=== PATIENT | female | born 1945 | race Caucasian/White ===

== ENCOUNTER 2017-04-08 07:36 | Day surgery (SDC) | payer MEDICARE, BC ==
[~2017-04-08] VITALS: Ht 180.3 cm; Wt 91.5 kg
[~2017-04-08 07:36] MED LIST: ASCO500 PO; Aspir 8181 MG; CLIN1TS; LAMO100; LAMO25 PO; LEVSOD75; LITH300C; LIVALO1 MG; PYRI100 PO; RISP1 PO; TOCO1000 PO; TRET.1TC TOP; VITAMIN D32000 UNIT PO
[2017-04-08] MEDS ORDERED: Hair, Skin & N1 EACH PO (08:02)
[2017-04-08] MEDS ORDERED: CALCIUM + D3 E1 EACH PO (08:03)
[2017-04-08] MEDS ORDERED: Coq-10100 MG PO (08:04)
[2017-04-08] MEDS ORDERED: TURMERIC500 M2 PO (08:05)
[2017-04-08] MEDS ORDERED: B Complex #11 EACH PO (08:06)
== END 2017-04-08 10:20 | disposition home or self-care (01) ==
LOC: ORSCSDS 07:36
PROVIDERS: Internal Medicine Gastroenterology
PROC: 0DBL8ZX Excision of Transverse Colon, Via Natural or Artificial Opening Endoscopic, Diagnostic (ICD-10-PCS; principal; 2017-04-08 08:45)
PROC: 0DBN8ZX Excision of Sigmoid Colon, Via Natural or Artificial Opening Endoscopic, Diagnostic (ICD-10-PCS; principal; 2017-04-08 08:45)
PROC: 0DBK8ZX Excision of Ascending Colon, Via Natural or Artificial Opening Endoscopic, Diagnostic (ICD-10-PCS; principal; 2017-04-08 08:45)
PROC: 0DBM8ZX Excision of Descending Colon, Via Natural or Artificial Opening Endoscopic, Diagnostic (ICD-10-PCS; principal; 2017-04-08 08:45)
DX: Z86.010 Personal history of colon polyps (principal); D12.2 Benign neoplasm of ascending colon; D12.3 Benign neoplasm of transverse colon; D12.4 Benign neoplasm of descending colon; K63.5 Polyp of colon; K64.8 Other hemorrhoids; K57.30 Diverticulosis of large intestine without perforation or abscess without bleeding; E03.9 Hypothyroidism, unspecified; J45.909 Unspecified asthma, uncomplicated; Z87.891 Personal history of nicotine dependence; Z79.899 Other long term (current) drug therapy; Z79.82 Long term (current) use of aspirin
CPT/HCPCS: 88305; J1980; J7120

== ENCOUNTER → 2017-07-25 | Outpatient (CLI) | payer MEDICARE, BC ==
[~2017-07-25] MED LIST changes: +B Complex #11 EACH PO; +CALCIUM + D3 E1 EACH PO; +Coq-10100 MG PO; +Hair, Skin & N1 EACH PO; +TURMERIC500 M2 PO
== END | disposition home or self-care (01) ==
LOC: LAB EV 18:41 → LAB SHORT 18:41
DX: N64.52 Nipple discharge (principal)
CPT/HCPCS: 87070; 87205

== ENCOUNTER 2018-04-28 08:17 | Day surgery (SDC) | payer MEDICARE, BC ==
[~2018-04-28] VITALS: Wt 89.7 kg
== END 2018-04-28 11:00 | disposition home or self-care (01) ==
LOC: ORSCSDS 08:17
PROVIDERS: Internal Medicine Gastroenterology
PROC: 0DBL8ZX Excision of Transverse Colon, Via Natural or Artificial Opening Endoscopic, Diagnostic (ICD-10-PCS; principal; 2018-04-28 09:30)
DX: Z12.11 Encounter for screening for malignant neoplasm of colon (principal); Z86.010 Personal history of colon polyps; K63.5 Polyp of colon; K57.30 Diverticulosis of large intestine without perforation or abscess without bleeding; K64.8 Other hemorrhoids; E03.9 Hypothyroidism, unspecified; Z87.891 Personal history of nicotine dependence; E78.5 Hyperlipidemia, unspecified; F31.9 Bipolar disorder, unspecified; Z79.899 Other long term (current) drug therapy; Z79.82 Long term (current) use of aspirin
CPT/HCPCS: 88305; J0330; J1980; J2405; J7120

== ENCOUNTER → 2018-06-15 | Outpatient (CLI) | payer MEDICARE, BC | END | disposition home or self-care (01) | LOC: LAB SHORT 09:53 → PLD 09:53 | DX: C44.41 Basal cell carcinoma of skin of scalp and neck (principal) | CPT/HCPCS: 88305 ==

== ENCOUNTER → 2018-07-02 | Outpatient (CLI) | payer MEDICARE, BC | END | disposition home or self-care (01) | LOC: LAB SHORT 11:52 → PLD 11:52 | DX: D48.5 Neoplasm of uncertain behavior of skin (principal) | CPT/HCPCS: 88305 ==

== ENCOUNTER → 2019-01-02 | Outpatient (CLI) | payer MEDICARE, BC ==
[2019-01-02 12:55] LABS: BASOPHILS ABSOLUTE AUTO 0.11 K/mm3 (0.00-0.23); BASOPHILS PERCENT AUTO 1 % (0-2); EOSINOPHILS ABSOLUTE AUTO 0.55 K/mm3 (0.00-0.68); EOSINOPHILS PERCENT AUTO 6 % (0-6); Hematocrit 40.6 % (33.0-51.0); Hemoglobin 12.9 g/dL (11.5-16.0); IMMATURE GRAN ABSOLUTE AUTO 0.03 K/mm3 (0.00-0.10); IMMATURE GRAN PERCENT AUTO 0 % (0-1); LYMPHOCYTES ABSOLUTE AUTO 1.41 K/mm3 (0.84-5.20); LYMPHOCYTES PERCENT AUTO 16 % (21-46); MONOCYTES ABSOLUTE AUTO 0.46 K/mm3 (0.16-1.47); MONOCYTES PERCENT AUTO 5 % (4-13); Mean Corpuscular HGB 28.7 pg (26.0-34.0); Mean Corpuscular HGB Conc 31.8 g/dL (31.5-36.5); Mean Corpuscular Volume 90 fL (80-100); Mean Platelet Volume 9.9 fL (9.1-12.4); NEUTROPHILS ABSOLUTE AUTO 6.28 K/mm3 (1.96-9.15); NEUTROPHILS PERCENT AUTO 71 % (41-73); Platelet Count 462 K/mm3 (150-400); RDW Coefficient Variation 14.4 % (11.7-14.2); RDW Standard Deviation 47.4 fL (35.1-46.3); Red Blood Cell Count 4.49 M/mm3 (3.80-5.20); White Blood Cell Count 8.84 K/mm3 (4.00-11.30)
[2019-01-02 13:13] LABS: Albumin, Blood 3.9 g/dL (3.4-5.0); Albumin/Globulin Ratio 1.1 (0.8-1.8); Bilirubin, Total 0.2 mg/dL (0.1-1.0); Bun/Creatinine Ratio 13.9 (12.0-20.0); Calcium, Blood 9.4 mg/dL (8.5-10.1); Creatinine, Blood 1.15 mg/dL (0.40-1.00); Globulin, Blood 3.6 g/dL (2.2-4.0); Potassium, Blood 4.4 mmol/L (3.5-5.5); Total Protein, Blood 7.5 g/dL (6.4-8.2)
== END | disposition home or self-care (01) ==
LOC: LAB SHORT 12:42 → LAB EV 12:42
PROVIDERS: Physician Assistant
DX: L03.116 Cellulitis of left lower limb (principal)
CPT/HCPCS: 80053; 85025; 87070; 87075; 87077; 87186; 87205

== ENCOUNTER 2019-01-29 08:49 | Day surgery (SDC) | payer MEDICARE, BC | END 2019-01-29 23:56 | disposition home or self-care (01) | LOC: WOUND 08:49 | DX: L03.116 Cellulitis of left lower limb (principal); I96 Gangrene, not elsewhere classified; E78.5 Hyperlipidemia, unspecified; E03.9 Hypothyroidism, unspecified; I25.10 Atherosclerotic heart disease of native coronary artery without angina pectoris; H26.9 Unspecified cataract; D64.9 Anemia, unspecified; M10.9 Gout, unspecified; J45.909 Unspecified asthma, uncomplicated; G62.9 Polyneuropathy, unspecified; F32.9 Major depressive disorder, single episode, unspecified; M16.10 Unilateral primary osteoarthritis, unspecified hip; Z95.5 Presence of coronary angioplasty implant and graft; Z88.2 Allergy status to sulfonamides; Z88.5 Allergy status to narcotic agent; Z79.82 Long term (current) use of aspirin; Z79.899 Other long term (current) drug therapy | CPT/HCPCS: 87071; 87075; 87077; 87186; 87205; G0463 ==

== ENCOUNTER 2019-02-03 15:21 | Day surgery (SDC) | payer MEDICARE, BC | END 2019-02-03 22:39 | disposition home or self-care (01) | LOC: WOUND 15:21 | DX: L97.821 Non-pressure chronic ulcer of other part of left lower leg limited to breakdown of skin (principal); E78.5 Hyperlipidemia, unspecified; E03.9 Hypothyroidism, unspecified; Z79.899 Other long term (current) drug therapy | CPT/HCPCS: 88305; 88312 ==

== ENCOUNTER 2019-02-08 16:02 | Day surgery (SDC) | payer MEDICARE, BC | END 2019-02-08 23:14 | disposition home or self-care (01) | LOC: WOUND 16:02 | DX: L97.822 Non-pressure chronic ulcer of other part of left lower leg with fat layer exposed (principal); E78.5 Hyperlipidemia, unspecified; E03.9 Hypothyroidism, unspecified; I25.10 Atherosclerotic heart disease of native coronary artery without angina pectoris; Z79.899 Other long term (current) drug therapy ==

== ENCOUNTER 2019-02-18 15:09 | Day surgery (SDC) | payer MEDICARE, BC | END 2019-02-18 23:08 | disposition home or self-care (01) | LOC: WOUND 15:09 | DX: L03.116 Cellulitis of left lower limb (principal); L97.821 Non-pressure chronic ulcer of other part of left lower leg limited to breakdown of skin; I96 Gangrene, not elsewhere classified; G62.9 Polyneuropathy, unspecified; E78.5 Hyperlipidemia, unspecified; E03.9 Hypothyroidism, unspecified; I25.10 Atherosclerotic heart disease of native coronary artery without angina pectoris; H26.9 Unspecified cataract; J45.909 Unspecified asthma, uncomplicated; D64.9 Anemia, unspecified; M10.9 Gout, unspecified; Z95.5 Presence of coronary angioplasty implant and graft; Z79.82 Long term (current) use of aspirin; Z79.899 Other long term (current) drug therapy; Z88.2 Allergy status to sulfonamides; Z88.5 Allergy status to narcotic agent | CPT/HCPCS: G0463 ==

== ENCOUNTER 2019-02-25 15:00 | Day surgery (SDC) | payer MEDICARE, BC | END 2019-02-25 22:52 | disposition home or self-care (01) | LOC: WOUND 15:00 | DX: L03.116 Cellulitis of left lower limb (principal); I96 Gangrene, not elsewhere classified; E78.5 Hyperlipidemia, unspecified; E03.9 Hypothyroidism, unspecified; I25.10 Atherosclerotic heart disease of native coronary artery without angina pectoris; H26.9 Unspecified cataract; D64.9 Anemia, unspecified; J45.909 Unspecified asthma, uncomplicated; M10.9 Gout, unspecified; G62.9 Polyneuropathy, unspecified; Z95.5 Presence of coronary angioplasty implant and graft; Z79.82 Long term (current) use of aspirin; Z79.899 Other long term (current) drug therapy; Z88.2 Allergy status to sulfonamides; Z88.5 Allergy status to narcotic agent ==

== ENCOUNTER 2019-03-04 15:30 | Day surgery (SDC) | payer MEDICARE, BC | END 2019-03-04 23:06 | disposition home or self-care (01) | LOC: WOUND 15:30 | DX: Z09 Encounter for follow-up examination after completed treatment for conditions other than malignant neoplasm (principal); Z87.2 Personal history of diseases of the skin and subcutaneous tissue; I87.2 Venous insufficiency (chronic) (peripheral); E78.5 Hyperlipidemia, unspecified; E03.9 Hypothyroidism, unspecified; Z79.82 Long term (current) use of aspirin; Z79.899 Other long term (current) drug therapy | CPT/HCPCS: G0463 ==

== ENCOUNTER 2020-03-03 10:46 | Day surgery (SDC) | payer MEDICARE, BC ==
[~2020-03-03] VITALS: Ht 180.3 cm; Wt 86.4 kg
[~2020-03-03 10:46] MED LIST changes: +PRAV20 PO
== END 2020-03-03 13:46 | disposition home or self-care (01) ==
LOC: ORSCSDS 10:46
PROVIDERS: Podiatrist Foot & Ankle Surgery
PROC: 0QBQ0ZZ Excision of Right Toe Phalanx, Open Approach (ICD-10-PCS; principal; 2020-03-03 12:15)
DX: M20.61 Acquired deformities of toe(s), unspecified, right foot (principal); M20.41 Other hammer toe(s) (acquired), right foot; E78.5 Hyperlipidemia, unspecified; Z87.891 Personal history of nicotine dependence; G47.33 Obstructive sleep apnea (adult) (pediatric); E03.9 Hypothyroidism, unspecified; F31.9 Bipolar disorder, unspecified; Z79.899 Other long term (current) drug therapy
CPT/HCPCS: J0171; J0690; J2250; J2704; J3010; J7120

== ENCOUNTER 2020-03-28 06:45 | Day surgery (SDC) | payer MEDICARE, BC ==
[~2020-03-28] VITALS: Ht 180.3 cm; Wt 85.6 kg
[2020-03-28] MEDS ORDERED: Norco 5-325 Ta1 EACH (07:25)
[2020-03-28] MEDS ORDERED: ONDA4ODT (07:25)
[2020-03-28] MEDS ORDERED: TERB250 (07:26)
== END 2020-03-28 09:22 | disposition home or self-care (01) ==
LOC: ORSCSDS 06:45
PROVIDERS: Internal Medicine Gastroenterology
PROC: 0DBK8ZX Excision of Ascending Colon, Via Natural or Artificial Opening Endoscopic, Diagnostic (ICD-10-PCS; principal; 2020-03-28 08:00)
PROC: 0DBL8ZX Excision of Transverse Colon, Via Natural or Artificial Opening Endoscopic, Diagnostic (ICD-10-PCS; principal; 2020-03-28 08:00)
PROC: 0DBM8ZX Excision of Descending Colon, Via Natural or Artificial Opening Endoscopic, Diagnostic (ICD-10-PCS; principal; 2020-03-28 08:00)
DX: Z12.11 Encounter for screening for malignant neoplasm of colon (principal); D12.2 Benign neoplasm of ascending colon; D12.3 Benign neoplasm of transverse colon; D12.4 Benign neoplasm of descending colon; K64.8 Other hemorrhoids; Z86.010 Personal history of colon polyps; J45.909 Unspecified asthma, uncomplicated; F31.9 Bipolar disorder, unspecified; Z79.899 Other long term (current) drug therapy
CPT/HCPCS: 88305; J0330; J0461; J2405; J2704; J7120

== ENCOUNTER 2020-04-11 07:14 | Day surgery (SDC) | payer MEDICARE, BC ==
[~2020-04-11] VITALS: Ht 180.3 cm; Wt 88.1 kg
[~2020-04-11 07:14] MED LIST changes: +Norco 5-325 Ta1 EACH; +ONDA4ODT; +TERB250
== END 2020-04-11 09:49 | disposition home or self-care (01) ==
LOC: ORSCSDS 07:14
PROVIDERS: Ophthalmology
PROC: 080NXZZ Alteration of Right Upper Eyelid, External Approach (ICD-10-PCS; principal; 2020-04-11 08:30)
PROC: 080PXZZ Alteration of Left Upper Eyelid, External Approach (ICD-10-PCS; principal; 2020-04-11 08:30)
DX: H02.831 Dermatochalasis of right upper eyelid (principal); H02.834 Dermatochalasis of left upper eyelid; J45.909 Unspecified asthma, uncomplicated; Z79.899 Other long term (current) drug therapy
CPT/HCPCS: A9270; J2704; J7040

== ENCOUNTER → 2020-06-03 | Outpatient (CLI) | payer MEDICARE, BC | END | disposition home or self-care (01) | LOC: LAB EV 16:44 → LAB SHORT 16:44 | DX: L08.9 Local infection of the skin and subcutaneous tissue, unspecified (principal) | CPT/HCPCS: 87070; 87075; 87205 ==

== ENCOUNTER 2020-07-05 00:30 | Day surgery (SDC) | payer MEDICARE, BC | END 2020-07-05 22:46 | disposition home or self-care (01) | LOC: WOUND 00:30 | DX: S81.802A Unspecified open wound, left lower leg, initial encounter (principal); I73.9 Peripheral vascular disease, unspecified; E78.5 Hyperlipidemia, unspecified; E03.9 Hypothyroidism, unspecified; I87.2 Venous insufficiency (chronic) (peripheral); I25.10 Atherosclerotic heart disease of native coronary artery without angina pectoris; J45.909 Unspecified asthma, uncomplicated; M10.9 Gout, unspecified; G62.9 Polyneuropathy, unspecified; Z85.3 Personal history of malignant neoplasm of breast; Z92.21 Personal history of antineoplastic chemotherapy; Z92.3 Personal history of irradiation; Z88.6 Allergy status to analgesic agent; Z88.1 Allergy status to other antibiotic agents; Z88.5 Allergy status to narcotic agent; Z88.2 Allergy status to sulfonamides; Z86.718 Personal history of other venous thrombosis and embolism; X58.XXXA Exposure to other specified factors, initial encounter ==

== ENCOUNTER 2020-07-12 01:18 | Day surgery (SDC) | payer MEDICARE, BC | END 2020-07-12 23:21 | disposition home or self-care (01) | LOC: WOUND 01:18 | DX: S81.802A Unspecified open wound, left lower leg, initial encounter (principal); X58.XXXA Exposure to other specified factors, initial encounter; I73.9 Peripheral vascular disease, unspecified; E78.5 Hyperlipidemia, unspecified; E03.9 Hypothyroidism, unspecified; I25.10 Atherosclerotic heart disease of native coronary artery without angina pectoris | CPT/HCPCS: A9270 ==

== ENCOUNTER 2020-07-18 01:20 | Day surgery (SDC) | payer MEDICARE, BC | END 2020-07-18 22:45 | disposition home or self-care (01) | LOC: WOUND 01:20 | DX: S81.802A Unspecified open wound, left lower leg, initial encounter (principal); X58.XXXA Exposure to other specified factors, initial encounter; I73.9 Peripheral vascular disease, unspecified; E78.5 Hyperlipidemia, unspecified; E03.9 Hypothyroidism, unspecified; I25.10 Atherosclerotic heart disease of native coronary artery without angina pectoris | CPT/HCPCS: A9270 ==

== ENCOUNTER 2020-07-25 00:21 | Day surgery (SDC) | payer MEDICARE, BC | END 2020-07-25 23:44 | disposition home or self-care (01) | LOC: WOUND 00:21 | DX: L97.822 Non-pressure chronic ulcer of other part of left lower leg with fat layer exposed (principal) | CPT/HCPCS: A9270 ==

== ENCOUNTER 2020-08-01 03:36 | Day surgery (SDC) | payer MEDICARE, BC | END 2020-08-01 23:07 | disposition home or self-care (01) | LOC: WOUND 03:36 | DX: S81.802A Unspecified open wound, left lower leg, initial encounter (principal); X58.XXXA Exposure to other specified factors, initial encounter; I73.9 Peripheral vascular disease, unspecified; E78.5 Hyperlipidemia, unspecified; E03.9 Hypothyroidism, unspecified; I25.10 Atherosclerotic heart disease of native coronary artery without angina pectoris; Z88.1 Allergy status to other antibiotic agents; Z88.2 Allergy status to sulfonamides; Z88.8 Allergy status to other drugs, medicaments and biological substances | CPT/HCPCS: A9270; G0463 ==

== ENCOUNTER 2020-08-08 03:08 | Day surgery (SDC) | payer MEDICARE, BC | END 2020-08-08 23:07 | disposition home or self-care (01) | LOC: WOUND 03:08 | DX: S81.802A Unspecified open wound, left lower leg, initial encounter (principal); X58.XXXA Exposure to other specified factors, initial encounter; I73.9 Peripheral vascular disease, unspecified | CPT/HCPCS: A9270; G0463 ==

== ENCOUNTER 2020-08-22 02:12 | Day surgery (SDC) | payer MEDICARE, BC | END 2020-08-22 22:52 | disposition home or self-care (01) | LOC: WOUND 02:12 | DX: S81.802A Unspecified open wound, left lower leg, initial encounter (principal); X58.XXXA Exposure to other specified factors, initial encounter; I73.9 Peripheral vascular disease, unspecified; E78.5 Hyperlipidemia, unspecified; E03.9 Hypothyroidism, unspecified; I25.10 Atherosclerotic heart disease of native coronary artery without angina pectoris | CPT/HCPCS: A9270 ==

== ENCOUNTER 2020-09-14 02:34 | Day surgery (SDC) | payer MEDICARE, BC | END 2020-09-14 23:13 | disposition home or self-care (01) | LOC: WOUND 02:34 | DX: S81.802D Unspecified open wound, left lower leg, subsequent encounter (principal); X58.XXXD Exposure to other specified factors, subsequent encounter; I73.9 Peripheral vascular disease, unspecified; E78.5 Hyperlipidemia, unspecified; E03.9 Hypothyroidism, unspecified; I25.10 Atherosclerotic heart disease of native coronary artery without angina pectoris | CPT/HCPCS: A9270; G0463 ==

== ENCOUNTER 2021-01-03 04:35 | Day surgery (SDC) | payer MEDICARE, BC | END 2021-01-03 23:30 | disposition home or self-care (01) | LOC: WOUND 04:35 | DX: S81.802A Unspecified open wound, left lower leg, initial encounter (principal); E78.5 Hyperlipidemia, unspecified; I25.10 Atherosclerotic heart disease of native coronary artery without angina pectoris; I73.9 Peripheral vascular disease, unspecified; J45.909 Unspecified asthma, uncomplicated; Z88.5 Allergy status to narcotic agent; Z88.2 Allergy status to sulfonamides; Z88.1 Allergy status to other antibiotic agents; Z86.718 Personal history of other venous thrombosis and embolism; X58.XXXA Exposure to other specified factors, initial encounter | CPT/HCPCS: A9270; G0463 ==

== ENCOUNTER 2021-01-18 08:00 | Day surgery (SDC) | payer MEDICARE, BC | END 2021-01-18 23:59 | disposition home or self-care (01) | LOC: WOUND 08:00 | DX: S81.802A Unspecified open wound, left lower leg, initial encounter (principal); X58.XXXD Exposure to other specified factors, subsequent encounter; I73.9 Peripheral vascular disease, unspecified; E78.5 Hyperlipidemia, unspecified; E03.9 Hypothyroidism, unspecified; I25.10 Atherosclerotic heart disease of native coronary artery without angina pectoris; Z88.1 Allergy status to other antibiotic agents; Z88.8 Allergy status to other drugs, medicaments and biological substances | CPT/HCPCS: G0463 ==

== ENCOUNTER 2021-04-04 10:11 | Day surgery (SDC) | payer MEDICARE, BC ==
[~2021-04-04] VITALS: Ht 180.3 cm; Wt 87.9 kg
[~2021-04-04 10:11] MED LIST changes: -Aspir 8181 MG; +Aspir 8181 MG PO; -LAMO100; +LAMO100 PO; -LEVSOD75; +LEVSOD75 PO
[2021-04-09] MEDS ORDERED: Lithium Carbon450 MG PO (14:34)
== END 2021-04-04 12:35 | disposition home or self-care (01) ==
LOC: ORSCSDS 10:11
PROVIDERS: Internal Medicine Gastroenterology
PROC: 0DBM8ZX Excision of Descending Colon, Via Natural or Artificial Opening Endoscopic, Diagnostic (ICD-10-PCS; principal; 2021-04-04 11:30)
PROC: 0DBL8ZX Excision of Transverse Colon, Via Natural or Artificial Opening Endoscopic, Diagnostic (ICD-10-PCS; principal; 2021-04-04 11:30)
DX: Z12.11 Encounter for screening for malignant neoplasm of colon (principal); Z86.010 Personal history of colon polyps; D12.3 Benign neoplasm of transverse colon; D12.4 Benign neoplasm of descending colon; K57.30 Diverticulosis of large intestine without perforation or abscess without bleeding; K64.8 Other hemorrhoids; J45.909 Unspecified asthma, uncomplicated; E03.9 Hypothyroidism, unspecified; Z85.3 Personal history of malignant neoplasm of breast; Z79.899 Other long term (current) drug therapy
CPT/HCPCS: 88305; J2704; J7120

== ENCOUNTER 2021-05-02 06:16 | Day surgery (SDC) | payer MEDICARE, BC ==
[~2021-05-02] VITALS: Ht 180.3 cm; Wt 88.4 kg
[~2021-05-02 06:16] MED LIST changes: +Lithium Carbon450 MG PO
--- NOTE | 2021-05-02 06:30 | NUR ---
Ambulatory in Day Surgery. Patient up to Ambulate independently. Gait steady. History, Chart, Medications and Allergies reviewed before start of procedure. Lungs clear T/O to Auscultation. Patient confirms NPO status and agrees with scheduled surgery. Pre-Op teaching done. Pt verbalizes understanding.
--- NOTE | 2021-05-02 11:18 | NUR ---
Pt. is recently moved from surgery. Pt. resting but welcomed my visit. Establish rapport. Pt. displayed evidence of surgical anesthesia (drowsy). With permission, prayed for pt. and agreed to [place] back in the afternoon. Pt. displayed evidence of gratitude.
--- NOTE | 2021-05-02 14:46 | NUR ---
SHIFT SUMMARY POD 0 L JOSE, X3 PRESSURE DRSGS, C/D/I, POLAR PACK IN PLACE. 1P ASSIST W/FWW GB TO BSC/CHAIR/BED. A&O X4, VSS ON RA. TOLERATING PO WELL, VOIDING. PAIN MANAGED WELL WITH NORCO AND TORADOL PER EMAR. WILL REPORT TO ONCOMING RN.
--- NOTE | 2021-05-02 15:09 | NUR ---
Pt. is alert and sitting in chair. Pt. welcomes my visit. Rapport established. Pt. is unsettled about whether her will be let in beofre her discharge. Listen empathetically. Pt. also unsettled by husbands health. Provided a calming presence. Prayed with pt. for her recovery, and concerns at home. Pt. displayed evidence of reduced stress and verbalized gratitude for the spiritual care visit. After departure confirmed nurses will give spouse access to pt. during discharge instructions.
--- NOTE | 2021-05-03 03:51 | NUR ---
SUMMARY PT PAIN MANAGED WELL. PT DRESSING C/D/I. PT AMBULATED WELL W/ GB, FWW. PT VOIDED THROUGHTOUT THE SHIFT. PT HAS GOOD SENATION THROUGHTOUT BLE. PT HAS BEEN ABLE TO SLEP OFF AND ON. PT CURRENTLY SLEEPING IN NO DISTRESS. CALL LIGHT IN REACH.
[2021-05-03 04:13] LABS: BASOPHILS ABSOLUTE AUTO 0.05 K/mm3 (0.00-0.23); BASOPHILS PERCENT AUTO 1 % (0-2); EOSINOPHILS ABSOLUTE AUTO 0.44 K/mm3 (0.00-0.68); EOSINOPHILS PERCENT AUTO 5 % (0-6); Hematocrit 30.5 % (33.0-51.0); Hemoglobin 9.7 g/dL (11.5-16.0); IMMATURE GRAN ABSOLUTE AUTO 0.03 K/mm3 (0.00-0.10); IMMATURE GRAN PERCENT AUTO 0 % (0-1); LYMPHOCYTES ABSOLUTE AUTO 0.89 K/mm3 (0.84-5.20); LYMPHOCYTES PERCENT AUTO 10 % (21-46); MONOCYTES ABSOLUTE AUTO 0.66 K/mm3 (0.16-1.47); MONOCYTES PERCENT AUTO 8 % (4-13); Mean Corpuscular HGB Conc 31.8 g/dL (31.5-36.5); Mean Corpuscular Volume 91 fL (80-100); Mean Platelet Volume 10.3 fL (9.1-12.4); NEUTROPHILS ABSOLUTE AUTO 6.46 K/mm3 (1.96-9.15); NEUTROPHILS PERCENT AUTO 76 % (41-73); Platelet Count 276 K/mm3 (150-400); RDW Coefficient Variation 14.1 % (11.7-14.2); RDW Standard Deviation 46.7 fL (35.1-46.3); Red Blood Cell Count 3.35 M/mm3 (3.80-5.20); White Blood Cell Count 8.53 K/mm3 (4.00-11.30)
[2021-05-03 04:38] LABS: Anion Gap 5 mmol/L (6-16); Blood Urea Nitrogen 16 mg/dL (8-24); Bun/Creatinine Ratio 17.5 (12.0-20.0); CO2, Blood 28 mmol/L (21-32); Calcium, Blood 8.7 mg/dL (8.5-10.1); Chloride, Blood 105 mmol/L (98-108); Creatinine, Blood 0.92 mg/dL (0.40-1.00); Glomerular Filtration Rate >60 (60-); Glucose, Blood 147 mg/dL (70-99); Magnesium, Blood 2.3 mg/dL (1.6-2.4); Potassium, Blood 4.3 mmol/L (3.5-5.5); Sodium, Blood 138 mmol/L (136-145)
[2021-05-03] MEDS ORDERED: ENOX40I INJ (08:16)
--- NOTE | 2021-05-03 10:20 | NUR ---
Pt. is alert and sitting up in chair. Spouse is present. Pt. is unsettled about her discharge. Nornalize the pt. experience. Pt. displayed evidence of a skeptical disposition. Listen empathetically and establish rapport with Pt. and spouse. Spiritual care visit was interrupted by physical therapy. Will monitor.
--- NOTE | 2021-05-03 11:35 | NUR ---
DISCHARGE PT CLEARED PT AND OT, AMBULATING WELL W/FWW&GB. VSS, PAIN MANAGED PER EMAR, TOLERATING PO, VOIDING WELL. EL DRSG CHANGED. POLAR PACK, COURTNEY INST, DONOVAN Richard3 SENT W/ PT. IV DC'D. ESCORTED TO CAR VIA W/C.
== END 2021-05-03 11:52 | disposition home or self-care (01) ==
LOC: ORSCMMR 06:16 → ORD 07:30 → ORSCMMR 07:30 → SURS 10:19 → ORSCMMR 05-03 11:52
PROVIDERS: Orthopaedic Surgery
PROC: 8E0YXBZ Computer Assisted Procedure of Lower Extremity (ICD-10-PCS; principal; 2021-05-02 07:30)
PROC: 0SRB0JA Replacement of Left Hip Joint with Synthetic Substitute, Uncemented, Open Approach (ICD-10-PCS; principal; 2021-05-02 07:30)
DX: M16.12 Unilateral primary osteoarthritis, left hip (principal); J45.909 Unspecified asthma, uncomplicated; G47.33 Obstructive sleep apnea (adult) (pediatric); K21.9 Gastro-esophageal reflux disease without esophagitis; E03.9 Hypothyroidism, unspecified; F31.9 Bipolar disorder, unspecified; Z85.3 Personal history of malignant neoplasm of breast; Z79.899 Other long term (current) drug therapy
CPT/HCPCS: 36415; 72170; 80048; 83735; 85025; 97110; 97116; 97162; 97166; 97530; 97535; A9270; C1713; C1776; J0171; J0690; J0735; J1170; J1650; J1885; J2405; J2704; J2795; J3010; J7120

== ENCOUNTER 2022-10-25 10:21 | Day surgery (SDC) | payer MEDICARE, BC ==
[~2022-10-25] VITALS: Ht 180.3 cm; Wt 88.4 kg
[~2022-10-25 10:21] MED LIST changes: +ENOX40I INJ
[2022-10-25 12:10] VITALS: BP 132/46
--- NOTE | 2022-10-25 12:11 | NUR ---
10/25/22 1211 Francesca Stratton IV DC'D PT TOLERATED WELL. SETH AND ZARI IN PLACE
== END 2022-10-25 12:11 | disposition home or self-care (01) ==
LOC: ORSCSDS 10:21
PROVIDERS: Internal Medicine Gastroenterology
PROC: 0DBN8ZX Excision of Sigmoid Colon, Via Natural or Artificial Opening Endoscopic, Diagnostic (ICD-10-PCS; principal; 2022-10-25 12:15)
PROC: 0DBL8ZX Excision of Transverse Colon, Via Natural or Artificial Opening Endoscopic, Diagnostic (ICD-10-PCS; principal; 2022-10-25 12:15)
DX: Z12.11 Encounter for screening for malignant neoplasm of colon (principal); Z86.010 Personal history of colon polyps; D12.3 Benign neoplasm of transverse colon; K63.5 Polyp of colon; K57.30 Diverticulosis of large intestine without perforation or abscess without bleeding; K64.8 Other hemorrhoids; J45.909 Unspecified asthma, uncomplicated; E03.9 Hypothyroidism, unspecified; E78.5 Hyperlipidemia, unspecified; Z79.899 Other long term (current) drug therapy; Z79.82 Long term (current) use of aspirin; Z86.718 Personal history of other venous thrombosis and embolism
CPT/HCPCS: 88305; J0461; J2001; J2405; J2704; J7120; Q9968